=== PATIENT | male | born 1945 | race Caucasian/White ===

== ENCOUNTER → 2016-12-16 | Outpatient (CLI) | payer OTHER | END | disposition home or self-care (01) | LOC: PCVCIMAG 13:20 | PROVIDERS: ATTEND Internal Medicine Cardiovascular Disease | DX: I10 Essential (primary) hypertension (principal); E11.9 Type 2 diabetes mellitus without complications; G47.33 Obstructive sleep apnea (adult) (pediatric); E66.9 Obesity, unspecified; R10.84 Generalized abdominal pain | CPT/HCPCS: 93306; G0463 ==

== ENCOUNTER → 2017-03-28 | Outpatient (CLI) | payer OTHER | END | disposition home or self-care (01) | LOC: PCVCCLINIC 16:19 | PROVIDERS: ATTEND Internal Medicine Cardiovascular Disease | DX: K55.1 Chronic vascular disorders of intestine (principal); G47.33 Obstructive sleep apnea (adult) (pediatric); R10.84 Generalized abdominal pain; E78.00 Pure hypercholesterolemia, unspecified; R94.31 Abnormal electrocardiogram [ECG] [EKG]; I12.9 Hypertensive chronic kidney disease with stage 1 through stage 4 chronic kidney disease, or unspecified chronic kidney disease; N18.9 Chronic kidney disease, unspecified; E11.22 Type 2 diabetes mellitus with diabetic chronic kidney disease; K21.9 Gastro-esophageal reflux disease without esophagitis; F17.200 Nicotine dependence, unspecified, uncomplicated; I49.3 Ventricular premature depolarization; Z90.49 Acquired absence of other specified parts of digestive tract; Z79.82 Long term (current) use of aspirin; Z79.84 Long term (current) use of oral hypoglycemic drugs; Z79.899 Other long term (current) drug therapy | CPT/HCPCS: 80061; 93005; G0463 ==

== ENCOUNTER → 2017-04-10 | Outpatient (CLI) | payer OTHER ==
[~2017-04-10] MED LIST: CLOPIDOGREL BISULFATE 75 MG TABLET ONE; DIAZEPAM 10 MG TABLET. ONE; HEPARIN SODIUM 5,000 UNIT/ML VIAL for PCVC. ONE; IOHEXOL 300 MG/ML 100ML VIAL. ONE; IOHEXOL 350 MG/ML 100 ML VIAL. ONE; IV NORMAL SALINE 1000ML BAG 1,000 ML ONE; LIDOCAINE 1% Multi-Dose 20 ML VIAL. ONE; MIDAZOLAM HCL/PF 2 MG/2 ML VIAL. ONE; NITROGLYCERIN PREMIX 250 ML IV ONE; fentaNYL PF VIAL 100 MCG/2 ML VIAL ONE; hydrALAZINE 20 MG/ML VIAL. ONE
--- NOTE | 2017-04-10 14:36 | PCVCINTER ---
EXAM: 1. AORTOGRAM AND BILATERAL ILIOFEMORAL ANGIOGRAPHY 2. BILATERAL RENAL ANGIOGRAPHY 3. COMPLETE MESENTERIC ANGIOGRAPHY 4. INFERIOR MESENTERIC ARTERY STENT PLACEMENT 5. SUPERIOR MESENTERIC ARTERY STENT PLACEMENT INDICATION: Chronic mesenteric ischemia. Postprandial abdominal pain. Mesenteric atherosclerosis.. Hypertension. Renal atherosclerosis. PROCEDURE: Procedure and risks of the procedures listed above were discussed with the patient and consent obtained. Risks including but not limited to bleeding, infection, stroke, vascular injury, neurologic injury, embolization, allergic reactions, bowel ischemia requiring resection, and contrast-induced nephropathy requiring dialysis were discussed as appropriate and consent obtained. Patient was placed on the angiography table. IV conscious sedation was utilized with appropriate monitoring for 90 minutes. The right groin was prepped and draped in the normal sterile fashion. Ultrasound was used to interrogate the right groin and demonstrate the right common femoral artery. An ultrasound image was saved. Under ultrasound guidance a 21 gauge needle was used to gain access into the right common femoral artery and a 5F vascular sheath was placed. Catheter was placed into the suprarenal abdominal aorta and abdominal aortic angiogram performed. Catheter was placed into the distal abdominal aorta and bilateral iliofemoral angiography performed. Catheter was placed into the right renal arteries and right renal angiograms performed. Catheter was placed into the left renal arteries and left renal angiograms performed. Catheter was placed into the celiac axis and celiac angiogram performed. Catheter was placed in the superior mesenteric artery and SMA angiogram performed. Catheter was placed into the inferior mesenteric artery and COLIN angiogram performed. Patient was given 4500 units of heparin. Groin sheath was upsized to 6 Russian. I placed a 5 x 12 Palmaz blue stent across the area of high-grade stenosis at the origin of the inferior mesenteric artery. Follow-up angiogram was performed. I then placed a 7 x 15 Palmaz blue stent across area of stenosis in the proximal superior mesenteric artery with subsequent dilatation up to 7.[address] Alvarado joined the procedure and he performed coronary angiography. Please see his separate dictation for details. Catheters and wires removed. Sheath was removed and hemostasis obtained using the Mynx device. No immediate complications. FINDINGS: Aortogram: There is one right and one left renal artery. The celiac axis is patent. Moderate calcific plaque infrarenal abdominal aorta without significant stenosis. Bilateral iliofemoral angiography: The right and left common iliac and external iliac arteries show good patency. The right and left internal iliac arteries are patent. The right and left common femoral and profunda femoral arteries are patent. The upper superficial femoral arteries are patent. Right renal artery: Moderate plaque proximal vessel does not cause significant stenosis. No branch vessel stenosis. Left renal artery: Mild plaque proximal vessel does not cause significant stenosis. No branch vessel stenosis. Celiac axis: Moderate calcific plaque proximal vessel does not cause significant stenosis. Distal branches are patent. Celiac to SMA collaterals are noted. Superior mesenteric artery: Moderately extensive calcific plaque proximal vessel results in 80% stenosis which is felt to be flow-limiting. The more distal vessel is patent as are its distal branches. Inferior mesenteric artery: Moderate plaque at the origin the vessel results in 90% stenosis. Distal branches are patent. Superior mesenteric artery: Following stent placement as above vessel shows satisfactory patency with only slight recoil of the stent proximally in an area of heavy plaque. Inferior mesenteric artery: Following stent placement vessel shows satisfactory patency with only slight recoil of the stent proximally. IMPRESSION: 80% stenosis superior mesenteric artery was treated as above with satisfactory patency restored. 90% stenosis at the origin of the inferior mesenteric artery was treated as above with satisfactory patency restored. The celiac axis shows satisfactory patency. No significant aortoiliac or iliofemoral stenosis. LOC:[id number]
== END | disposition home or self-care (01) ==
LOC: PCVCINTER 07:36
PROVIDERS: ATTEND Nuclear Medicine Nuclear Cardiology
DX: K55.059 Acute (reversible) ischemia of intestine, part and extent unspecified (principal); K55.1 Chronic vascular disorders of intestine; I70.1 Atherosclerosis of renal artery; I10 Essential (primary) hypertension
CPT/HCPCS: 36245; 36252; 37236; 37237; 75726; 76937; 93458; 99152; 99153; C1725; C1751; C1760; C1769; C1876; C1887; C1894; J0360; J0690; J1644; J2250; J3010; J3490; J7030; Q9967

== ENCOUNTER → 2017-07-14 | Outpatient (CLI) | payer OTHER ==
--- NOTE | 2017-07-14 23:20 | PCVCIMAG ---
EXAM: MESENTERIC ARTERIAL DUPLEX INDICATION: Mesenteric Atherosclerosis. FINDINGS: Celiac [place]: 60-70% stenosis in the celiac axis. Superior Mesenteric Artery: No flow limiting stenosis. No branch vessel stenosis. Prior stent is patent. Inferior Mesenteric Artery: No flow limiting stenosis. No branch vessel stenosis. Prior stent is patent. Mesenteric veins are patent where seen. 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 Previous superior and inferior mesenteric artery stents remain patent. LOC:OFFICE
== END | disposition home or self-care (01) ==
LOC: PCVCIMAG 10:53
PROVIDERS: ATTEND Internal Medicine Cardiovascular Disease
DX: K55.1 Chronic vascular disorders of intestine (principal); I77.4 Celiac artery compression syndrome; G47.33 Obstructive sleep apnea (adult) (pediatric); I25.10 Atherosclerotic heart disease of native coronary artery without angina pectoris; I73.9 Peripheral vascular disease, unspecified; Z95.828 Presence of other vascular implants and grafts
CPT/HCPCS: 93975

== ENCOUNTER → 2017-10-20 | Outpatient (CLI) | payer OTHER | END | disposition home or self-care (01) | LOC: PCVCIMAG 08:06 | DX: I65.23 Occlusion and stenosis of bilateral carotid arteries (principal); I77.1 Stricture of artery; I12.9 Hypertensive chronic kidney disease with stage 1 through stage 4 chronic kidney disease, or unspecified chronic kidney disease; E11.22 Type 2 diabetes mellitus with diabetic chronic kidney disease; N18.9 Chronic kidney disease, unspecified; Z95.828 Presence of other vascular implants and grafts | CPT/HCPCS: 93880; 93975 ==

== ENCOUNTER → 2018-11-21 | Outpatient (CLI) | payer OTHER | END | disposition home or self-care (01) | LOC: PCVCCLINIC 14:55 | PROVIDERS: ATTEND Internal Medicine Cardiovascular Disease | DX: I25.10 Atherosclerotic heart disease of native coronary artery without angina pectoris (principal); R10.9 Unspecified abdominal pain; G89.29 Other chronic pain; E78.00 Pure hypercholesterolemia, unspecified; K55.1 Chronic vascular disorders of intestine; I65.23 Occlusion and stenosis of bilateral carotid arteries; E11.22 Type 2 diabetes mellitus with diabetic chronic kidney disease; N18.9 Chronic kidney disease, unspecified; Z79.899 Other long term (current) drug therapy; Z87.891 Personal history of nicotine dependence | CPT/HCPCS: 36415; 80061; 93005; G0463 ==

== ENCOUNTER → 2018-12-28 | Outpatient (CLI) | payer OTHER ==
--- NOTE | 2018-12-28 09:53 | PCVCIMAG ---
APPROVED REPORT Indications Stenosis Doppler Spectral Velocity Analysis PSV / EDVPSV / EDV ECA (R) 96 / 14 cm/sECA (L) 105 / 8 cm/s dICA (R) 58 / 14 cm/sdICA (L) 110 / 26 cm/s Sarah (R) 76 / 20 cm/smICA (L) 98 / 19 cm/s pICA (R) 111 / 12 cm/spICA (L) 129 / 15 cm/s Bulb (R) 92 / 19 cm/sBulb (L) 137 / 21 cm/s dCCA (R) 141 / 23 cm/sdCCA (L) 121 / 15 cm/s mCCA (R) 131 / 16 cm/smCCA (L) 141 / 19 cm/s Vert (R) 51 / 7 cm/sVert (L) 56 / 10 cm/s ICA/CCA 0.79ICA/CCA 1.07 Findings The right carotid bulb has moderate calcified plaque. The right proximal internal carotid artery shows <40% stenosis. The right common carotid artery shows no significant stenosis. The right external carotid artery shows no significant stenosis. The left carotid bulb has moderate calcified plaque. The left proximal internal carotid artery shows 40-50% stenosis. The left common carotid artery shows no significant stenosis. The left external carotid artery shows no significant stenosis. Conclusion 1. Right internal carotid artery stenosis (<40%) 2. Left internal carotid artery stenosis (40-50%) 3. Antegrade vertebral flow
--- NOTE | 2018-12-28 19:19 | PCVCIMAG ---
EXAM: MESENTERIC ARTERIAL DUPLEX INDICATION: Mesenteric Atherosclerosis. FINDINGS: Celiac [place]: No flow limiting stenosis. No branch vessel stenosis. Superior Mesenteric Artery: 50-60% restenosis proximal vessel with the prior stent. No branch vessel stenosis. Inferior Mesenteric Artery: No flow limiting stenosis. No branch vessel stenosis. Mesenteric veins are patent where seen. IMPRESSION: Celiac axis is patent. 50-60% restenosis proximal superior mesenteric artery within prior stent not felt be critically flow-limiting. Inferior mesenteric artery stent maintaining satisfactory patency. LOC:[id number]
--- NOTE | 2018-12-31 14:56 | PCVCIMAG ---
APPROVED REPORT Study performed: 12/28/2018 09:41:23 Exam: Stress Echocardiogram Indication: CAD-moderate,dm, htn, hlp Patient Location: Echo lab Stress Nurse: Allison Wright RN Status: routine Ht: 5 ft 11 in HR: 76 bpm BP: 128/68 mmHg Rhythm: NSR Procedure The patient underwent an Exercise Stress Test using the Rios Protocol. Blood pressure, heart rate, and EKG were monitored. An Echocardiogram was performed by prepress technician in four stages in quad fashion. At peak stress, four selected images were obtained and placed side by side with resting images for comparison. Stress Test Details Stress Test: Exercise stress testing was performed using a Rios protocol. HR Resting HR: 76 bpmMax Heart Rate (APMHR): 145 bpm Max HR Achieved: 93 bpmTarget HR (85% APMHR): 123 bpm % of APMHR: 64 Recovery HR: 78 bpm HR response to stress: Normal HR response to stress BP Resting BP: 128/68 mmHg Max BP: 158/80 mmHg Recovery BP: 140/80 mmHg BP response to stress: Normal blood pressure response to stress. ECG Resting ECG: Sinus Rhythm Stress ECG: Sinus Rhythm ST Change: Normal Arrhythmia: None Recovery ECG: Sinus Rhythm Recovery ST Change: Normal Recovery Arrhythmia: None Clinical Reason for Termination: Dyspnea, Maximal effort, leg fatigue Stress Symptoms: limiting Dyspnea, leg fatigue Exercise duration: 3 min 27 sec Highest Stage Achieved: Stage 2: 2.5 mph at 12% grade. Exercise capacity: 5.6 METs Overall Exercise Capacity for Age: Poor Scale: Sedentary Angina Score: None Stress ECG Conclusion Non-diagnostic exercise stress due to failure to attain target HR. Submaximal stress test. Pre-Stress Echo The resting Echocardiogram showed normal left ventricular contractility with an estimated Ejection Fraction of about 50-55%. Normal wall motion in all segments on baseline images. Post-Stress Echo The stress Echocardiogram showed normal left ventricular contractility with an estimated Ejection Fraction of about 60-65%. Normal augmentation of wall motion in all segments on post stress images. Clinical No clinical or ECG evidence for ischemia. Conclusion Clinical Response: Non-ischemic Exercise Capacity: Below Average Stress ECG Response: Equivocal Stress Echo Images: Non-ischemic Non-diagnostic study due to inability of the patient to achieve 85% of maximal HR. Limiting dyspnea and leg fatigue resulting in on 3:27 mins of duration of exercise and peak heart rate of only 64% of target. Other Information Study Quality: Fair <Conclusion> Non-diagnostic study due to inability of the patient to achieve 85% of maximal HR. Limiting dyspnea and leg fatigue resulting in on 3:27 mins of duration of exercise and peak heart rate of only 64% of target.
== END | disposition home or self-care (01) ==
LOC: PCVCIMAG 08:20
PROVIDERS: ATTEND Internal Medicine Cardiovascular Disease
DX: I65.23 Occlusion and stenosis of bilateral carotid arteries (principal); K55.1 Chronic vascular disorders of intestine; I77.9 Disorder of arteries and arterioles, unspecified; I25.10 Atherosclerotic heart disease of native coronary artery without angina pectoris; E11.9 Type 2 diabetes mellitus without complications; I10 Essential (primary) hypertension; E78.5 Hyperlipidemia, unspecified; E78.00 Pure hypercholesterolemia, unspecified; I25.84 Coronary atherosclerosis due to calcified coronary lesion
CPT/HCPCS: 93325; 93351; 93880; 93975

== ENCOUNTER → 2019-07-23 | Outpatient (CLI) | payer OTHER | END | disposition home or self-care (01) | LOC: PCVCCLINIC 11:00 | PROVIDERS: ATTEND Internal Medicine Cardiovascular Disease | DX: I25.10 Atherosclerotic heart disease of native coronary artery without angina pectoris (principal); E78.00 Pure hypercholesterolemia, unspecified; E11.9 Type 2 diabetes mellitus without complications; K55.1 Chronic vascular disorders of intestine; I65.23 Occlusion and stenosis of bilateral carotid arteries; I10 Essential (primary) hypertension; K21.9 Gastro-esophageal reflux disease without esophagitis; R10.9 Unspecified abdominal pain; E66.9 Obesity, unspecified; Z79.82 Long term (current) use of aspirin; Z79.899 Other long term (current) drug therapy | CPT/HCPCS: 36415; 80061; 93005; G0463 ==

== ENCOUNTER → 2019-07-29 | Outpatient (CLI) | payer OTHER ==
--- NOTE | 2019-07-29 08:49 | PCVCIMAG ---
EXAM: MESENTERIC ARTERIAL DUPLEX INDICATION: Mesenteric Atherosclerosis. FINDINGS: Celiac [place]: Mild stenosis. No branch vessel stenosis. Superior Mesenteric Artery: 60-70% restenosis proximal/mid vessel within prior stent. No branch vessel stenosis. Inferior Mesenteric Artery: No flow limiting stenosis. No branch vessel stenosis. Mesenteric veins are patent where seen. IMPRESSION: 60-70% restenosis proximal superior mesenteric artery within prior stent. Please correlate clinically. Previous inferior mesenteric artery stent maintaining good patency. LOC:[id number]
== END | disposition home or self-care (01) ==
LOC: PCVCIMAG 07:55
PROVIDERS: ATTEND Internal Medicine Cardiovascular Disease
DX: K55.1 Chronic vascular disorders of intestine (principal); E78.00 Pure hypercholesterolemia, unspecified; K58.9 Irritable bowel syndrome, unspecified; G89.29 Other chronic pain
CPT/HCPCS: 93975